=== PATIENT | female | born 1995 | race Caucasian/White ===

== ENCOUNTER 2025-06-29 09:07 | Emergency (ER) | payer MEDICAID ==
[~2025-06-29] VITALS: Ht 182.9 cm; Wt 79.3 kg
[2025-06-29 09:10] VITALS: TEMP 97.9
--- NOTE | 2025-06-29 09:50 | Physician Documentation ---
History of Present Illness ~ Chief Complaint: Foot pain Stated Complaint: LEFT FOOT PAIN Time Seen by MD: 09:33 Source: patient Mode of Arrival: POV Exam Limitations: no limitations HPI 29-year-old female was going out of her house and rolled her left ankle with pain to the top lateral aspect of the foot with bruising. This occurred 2 days ago. Patient concerned for fracture Medication Reconciliation Allergies: Coded Allergies: No Known Allergies (Unverified , 06/29/25) Past Medical History Past Medical History: No Pertinent History Past Surgical History: no surgical history Drug Use: none Lives In: Home Occupation: employed Review of Systems All Other Systems at this time: Reviewed and Negative Musculoskeletal: Reports: see HPI Physical Exam Vital Signs: RN Vital Signs have been reviewed: Yes, Temperature: 97.9, Source: Temporal, Heart Rate: 71, Respiratory Rate: 15, BP: 117/69, Pulse Oximetry: 97, Weight: 79.300 Oxygen Flow Rate: 0 Physical Exam General: Alert, no apparent distress. HEENT: moist mucous membranes. Neck: Full range of motion. Respiratory: No respiratory distress speaking in full sentences Chest: No accessory muscle use. Cardiovascular: Appears well perfused Extremity: No obvious deformity to the dorsum of the left foot some mild swelling and bruising to the lateral aspect of the foot pain to the lateral malleolus no heel pain sensation circulation intact Neurologic: Oriented x4. Psychiatric: Normal mood and affect. Skin: Normal color, warm and dry. No edema, no ecchymosis. Progress Results/Orders Results/Orders Vital Signs 06/29/25 06/29/25 09:10 09:29 Temp 97.9 Pulse 82 71 Resp 16 15 B/P (MAP) 111/73 117/69 (85) Pulse Ox 99 97 O2 Flow Rate 0 Medical Decision Making Additional information obtaine: N/A Findings X-ray to evaluate for fracture or dislocation. Other differentials include sprain. X-ray was negative for any osseous abnormality General Diff Dx:Considerations: Include: Other Knee Diff Dx:Considerations: Include: Other Ankle Diff Dx:Considerations: Include: Other Foot Diff Dx:Considerations: Include: Abrasion, Arthritis, Contusion, Fracture- metatarsal, Fracture-phalynx, Fracture-tarsal, Neurovascular injury, Sprain Toe Diff Dx:Considerations: Include: Other Departure Time of Disposition: 11:14 Disposition: 01 HOME / SELF CARE / HOMELESS Impression: Primary Impression: Sprain of foot Condition: Stable Discharge Instructions: Sprains Additional Instructions: Rest ice compress no fractures noted in the x-ray. Take Tylenol or ibuprofen as needed for aelb-[id number] pain. Follow up primary care as needed Referrals: NO PRIMARY CARE PROVIDER (PCP) Education Educated: Patient Educated regarding: diagnosis, treatment, need for follow up Signature Scribe Signature: No scribe Attestation: The note accurately reflects work and decisions made by me.Geni GODWIN 06/29/25 09:54 GENI TRAORE NP Jun 29, 2025 09:49
[2025-06-29 11:27] VITALS: BP 119/75; PULSE 68; RESP 14; O2SAT 98
--- NOTE | 2025-06-29 13:38 | RADIOLOGY REPORT ---
EXAM: FOOT, COMPLETE (3VW MIN) CLINICAL INDICATION: pain TECHNIQUE: FOOT, COMPLETE (3VW MIN) Comparison: None FINDINGS/IMPRESSION: There is no evidence of acute fracture or dislocation. The visualized joint space is well maintained. The alignment is anatomical. There is no radiopaque foreign body. EET HERNANDEZ
== END 2025-06-29 11:29 | disposition home or self-care (01) ==
LOC: ER 09:09
DX: S90.02XA Contusion of left ankle, initial encounter (principal); X50.1XXA Overexertion from prolonged static or awkward postures, initial encounter; Y93.89 Activity, other specified; Y92.89 Other specified places as the place of occurrence of the external cause; Y99.8 Other external cause status
CPT/HCPCS: 73630; 99284